=== PATIENT | female | born 1945 | race Caucasian/White ===

== ENCOUNTER 2020-11-04 15:42 | Observation (INO) ==
[2020-11-04] MEDS ORDERED: Naloxone 0.4 MG/ML INJ IVP PRN (22:30)
[2020-11-04] MEDS ORDERED: Ondansetron ODT 4 MG TAB.RAPDIS SL PRN (22:30)
[2020-11-04] MEDS ORDERED: 0.9 % Sodium Chloride 1,000 ML IVC ONE (22:45)
[2020-11-04 23:27] LABS: INR 1.1; Prothrombin Time 12.4 Seconds (9.4-12.1)
[2020-11-04] MEDS ORDERED: Acetaminophen 325 MG TABLET PO ONE (23:28)
[2020-11-04 23:29] LABS: Activated Partial Thrombo Time 25.7 Seconds (26.0-36.0)
[2020-11-04 23:34] LABS: Basophils # 0.1 K/mcL (0.0-0.2); Basophils % 0.3 %; Eosinophils % 0.1 %; Hematocrit 25.4 % (35.3-44.9); Hemoglobin 8.1 g/dL (11.5-15.4); Immature Granulocytes % 0.7 % (0-4); Lymphocytes # 3.7 K/mcL (0.6-4.6); Lymphocytes % 16.8 %; Mean Corpuscular HGB Conc 31.9 g/dL (31.6-35.5); Mean Platelet Volume 10.9 fL (9.4-12.4); Monocytes # 1.9 K/mcL (0.0-1.3); Monocytes % 8.8 %; Platelet Count 296 K/mcL (140-400); Red Blood Count 2.79 M/mcL (3.82-4.97); Red Cell Distribution Width 13.6 % (11.5-14.5); Segmented Neutrophils % 73.3 %; White Blood Count 21.8 K/mcL (4.3-11.1)
[2020-11-04 23:35] LABS: Albumin 3.5 g/dL (3.5-5.7); Albumin/Globulin Ratio 1.7 (1.1-2.2); Bilirubin,Total 0.3 mg/dL (0.3-1.0); Calcium 8.8 mg/dL (8.6-10.3); Chol/HDL Ratio 4.5 (0-4.9); Globulin 2.1 g/dL (2.4-3.5); Magnesium 1.9 mg/dL (1.6-2.6); Phosphorous 3.5 mg/dL (2.7-4.5); Potassium 4.4 mEq/L (3.5-5.1); Total Protein 5.6 g/dL (6.4-8.9)
[2020-11-04] MEDS ORDERED: Ipratropium/Albuterol Neb 3 ML IH PRN (23:37)
[2020-11-04] MEDS ORDERED: cefTRIAXone 1,000 MG in Water for inj. (sterile) 10 ML IVP SCH (23:45)
[2020-11-04] MEDS ORDERED: Azithromycin 250 MG TABLET PO SCH (23:45)
[2020-11-05] MEDS ORDERED: levoFLOXacin 750 MG TABLET PO SCH (00:15)
[2020-11-05 02:24] LABS: Bacteria,Urine Few per hpf (None-Few); Bilirubin,Urine Negative (Negative); Blood,Urine Small (Negative); Clarity,Urine Clear (Clear); Color,Urine Light-Yellow (Yellow); Glucose,Urine (UA) Normal (Normal); Ketones,Urine Negative (Negative); Leukocyte Esterase,Urine Small (Negative); Nitrite,Urine Negative (Negative); PH,Urine 5.5 pH Units (5.0-8.0); Protein,Urine Negative (Neg-Trace); RBC,Urine 0-3 per hpf (0-3); Specific Gravity,Urine 1.025 (1.010-1.025); Squamous Epithelial Cell,Urine Moderate per hpf (None-Few); Urobilinogen,Urine Normal (Normal)
[2020-11-05 02:27] LABS: Potassium,Urine 82.3 mEq/L; Sodium, Urine 25.8 mEq/L
[2020-11-05] MEDS: Acetaminophen 325 MG TABLET PO PRN ×2 (05:20→13:26)
[2020-11-05] MEDS: Pantoprazole 40 MG VIAL IVP SCH ×2 (06:40→17:44)
[2020-11-05 10:38] LABS: Hematocrit 24.1 % (35.3-44.9); Hemoglobin 7.6 g/dL (11.5-15.4); Mean Corpuscular HGB Conc 31.5 g/dL (31.6-35.5); Mean Platelet Volume 10.8 fL (9.4-12.4); Platelet Count 246 K/mcL (140-400); Red Blood Count 2.62 M/mcL (3.82-4.97); Red Cell Distribution Width 13.5 % (11.5-14.5); White Blood Count 15.4 K/mcL (4.3-11.1)
[2020-11-05 11:10] LABS: Influenza A PCR Negative (Negative); Influenza B PCR Negative (Negative); Resp. Syncytial Virus PCR Negative (Negative)
[2020-11-05 11:11] LABS: SARS-CoV-2 by PCR (In House) Negative (Negative)
[2020-11-05] MEDS: Ringers Solution, Lactated 1,000 ML IVC SCH (11:14)
[2020-11-05 12:53] LABS: Calcium 8.7 mg/dL (8.6-10.3); Potassium 4.4 mEq/L (3.5-5.1)
[2020-11-05] MEDS ORDERED: Lidocaine -MPF 2% 5 ML VIAL SQ ONE (13:54)
[2020-11-05] MEDS ORDERED: *HR* Propofol 200 MG/20 ML VIAL IVP ONE (13:54)
[2020-11-05] MEDS: amLODIPine 5 MG TABLET PO SCH (14:43)
[2020-11-05] MEDS ORDERED: SODIUM CHLORIDE/NAHCO3/KCL/PEG 4,000 ML SOLN.RECON PO ONE (17:00)
[2020-11-05 17:29] LABS: Hematocrit 24.8 % (35.3-44.9); Hemoglobin 7.8 g/dL (11.5-15.4)
[2020-11-05] MEDS: carvediloL 25 MG TABLET PO SCH (17:39)
[2020-11-06] MEDS: Ringers Solution, Lactated 1,000 ML IVC SCH ×5 (00:33→20:09)
[2020-11-06] MEDS: Acetaminophen 325 MG TABLET PO PRN ×3 (00:37→20:06)
[2020-11-06] MEDS: Pantoprazole 40 MG VIAL IVP SCH ×2 (06:30→16:57)
[2020-11-06 06:38] LABS: Calcium 8.6 mg/dL (8.6-10.3); Potassium 4.2 mEq/L (3.5-5.1)
[2020-11-06] MEDS: FLUoxetine 20 MG CAPSULE PO SCH (08:51)
[2020-11-06] MEDS: carvediloL 25 MG TABLET PO SCH ×2 (08:51→16:57)
[2020-11-06] MEDS: amLODIPine 5 MG TABLET PO SCH (08:52)
[2020-11-06 15:50] LABS: Hematocrit 25.4 % (35.3-44.9); Hemoglobin 7.8 g/dL (11.5-15.4); Mean Corpuscular HGB Conc 30.7 g/dL (31.6-35.5); Mean Corpuscular Hemoglobin 28.8 pg (28.0-33.3); Mean Corpuscular Volume 93.7 fL (83.0-100.0); Mean Platelet Volume 10.8 fL (9.4-12.4); Platelet Count 286 K/mcL (140-400); Red Blood Count 2.71 M/mcL (3.82-4.97); Red Cell Distribution Width 13.4 % (11.5-14.5); White Blood Count 17.5 K/mcL (4.3-11.1)
[2020-11-06] MEDS ORDERED: SODIUM CHLORIDE/NAHCO3/KCL/PEG 4,000 ML SOLN.RECON PO ONE (17:00)
[2020-11-06] MEDS ORDERED: levoFLOXacin 750 MG TABLET PO SCH (21:00)
[2020-11-07 02:34] LABS: Basophils % 0.2 %; Eosinophils # 0.1 K/mcL (0.0-0.6); Hematocrit 20.7 % (35.3-44.9); Hemoglobin 6.4 g/dL (11.5-15.4); Immature Granulocytes % 0.6 % (0-4); Lymphocytes # 2.3 K/mcL (0.6-4.6); Lymphocytes % 20.7 %; Mean Corpuscular HGB Conc 30.9 g/dL (31.6-35.5); Mean Corpuscular Hemoglobin 29.4 pg (28.0-33.3); Mean Platelet Volume 11.2 fL (9.4-12.4); Monocytes # 1.2 K/mcL (0.0-1.3); Monocytes % 11.2 %; Neutrophils # 7.4 K/mcL (1.6-8.9); Platelet Count 210 K/mcL (140-400); Red Blood Count 2.18 M/mcL (3.82-4.97); Red Cell Distribution Width 13.3 % (11.5-14.5); Segmented Neutrophils % 66.3 %; White Blood Count 11.1 K/mcL (4.3-11.1)
[2020-11-07 02:56] LABS: BUN/Creatinine Ratio 18 (6-26); Blood Urea Nitrogen 19 mg/dL (8-23); Calcium 8.1 mg/dL (8.6-10.3); Carbon Dioxide 21 mEq/L (23-29); Chloride 108 mEq/L (98-107); Glucose 133 mg/dL (70-105); Osmolality,Calculated 292 (280-300); Potassium 3.4 mEq/L (3.5-5.1); Sodium 139 mEq/L (136-145); eGFR For African Americans > 60 (> 60); eGFR For Non-African Americans 50 (> 60)
[2020-11-07] MEDS: Ringers Solution, Lactated 1,000 ML IVC SCH (04:07)
[2020-11-07] MEDS: Pantoprazole 40 MG VIAL IVP SCH ×2 (05:27→17:26)
[2020-11-07] MEDS: FLUoxetine 20 MG CAPSULE PO SCH (08:15)
[2020-11-07] MEDS: amLODIPine 5 MG TABLET PO SCH (08:15)
[2020-11-07] MEDS: Acetaminophen 325 MG TABLET PO PRN ×2 (08:16→22:08)
[2020-11-07] MEDS: carvediloL 25 MG TABLET PO SCH ×2 (08:16→17:26)
[2020-11-07] MEDS ORDERED: 0.9 % Sodium Chloride 250 ML IVC SCH (13:45)
[2020-11-07] MEDS ORDERED: *HR* Propofol 200 MG/20 ML VIAL IVP ONE (13:54)
[2020-11-07] MEDS ORDERED: Lidocaine -MPF 4% 5 ML AMPUL TP ONE (13:54)
[2020-11-07 15:10] LABS: Total Volume 24 Hour,Urine 0.6 Liters (0.60-1.60)
[2020-11-07 15:32] LABS: Sodium, Urine 38.7 mEq/L
[2020-11-07] MEDS: Potassium Chloride Elixir 20 MEQ/15 ML UDC PO ONE (17:25)
[2020-11-07] MEDS: Insulin LISPRO 300 UNITS/3 ML VIAL SUBQ SCH (17:26)
[2020-11-07 19:39] LABS: Hematocrit 26.9 % (35.3-44.9)
[2020-11-07 19:44] LABS: Hemoglobin 8.4 g/dL (11.5-15.4)
[2020-11-07] MEDS ORDERED: Insulin LISPRO 300 UNITS/3 ML VIAL SUBQ SCH (21:00)
[2020-11-08 03:08] LABS: Alanine Aminotransferase 10 Units/L (7-52); Albumin/Globulin Ratio 1.5 (1.1-2.2); Alkaline Phosphatase 60 Units/L (34-104); Aspartate Amino Transferase 16 Units/L (13-39); BUN/Creatinine Ratio 12 (6-26); Bilirubin,Total 0.4 mg/dL (0.3-1.0); Blood Urea Nitrogen 13 mg/dL (8-23); Calcium 8.1 mg/dL (8.6-10.3); Carbon Dioxide 23 mEq/L (23-29); Chloride 110 mEq/L (98-107); Glucose 131 mg/dL (70-105); Osmolality,Calculated 294 (280-300); Potassium 3.4 mEq/L (3.5-5.1); Sodium 141 mEq/L (136-145); eGFR For African Americans > 60 (> 60); eGFR For Non-African Americans 51 (> 60)
[2020-11-08] MEDS: Pantoprazole 40 MG VIAL IVP SCH (05:41)
[2020-11-08] MEDS ORDERED: Potassium Chloride Elixir 20 MEQ/15 ML UDC PO ONE (08:48)
[2020-11-08] MEDS: Insulin LISPRO 300 UNITS/3 ML VIAL SUBQ SCH ×2 (08:53→11:15)
[2020-11-08] MEDS: amLODIPine 5 MG TABLET PO SCH (08:53)
[2020-11-08] MEDS: FLUoxetine 20 MG CAPSULE PO SCH (08:54)
[2020-11-08] MEDS: carvediloL 25 MG TABLET PO SCH (08:54)
[2020-11-08 09:38] LABS: Basophils % 0.2 %; Eosinophils # 0.1 K/mcL (0.0-0.6); Hematocrit 26.7 % (35.3-44.9); Hemoglobin 8.7 g/dL (11.5-15.4); Immature Granulocytes % 0.5 % (0-4); Lymphocytes % 15.7 %; Mean Corpuscular HGB Conc 32.6 g/dL (31.6-35.5); Mean Corpuscular Hemoglobin 29.1 pg (28.0-33.3); Mean Corpuscular Volume 89.3 fL (83.0-100.0); Mean Platelet Volume 10.8 fL (9.4-12.4); Monocytes # 1.4 K/mcL (0.0-1.3); Monocytes % 10.6 %; Neutrophils # 9.2 K/mcL (1.6-8.9); Platelet Count 262 K/mcL (140-400); Red Blood Count 2.99 M/mcL (3.82-4.97); Red Cell Distribution Width 14.8 % (11.5-14.5); White Blood Count 12.7 K/mcL (4.3-11.1)
[2020-11-08] MEDS: Potassium Chloride Elixir 20 MEQ/15 ML UDC PO ONE (11:01)
[2020-11-08 11:15] VITALS: BP 142/66
== END 2020-11-08 13:55 | disposition home or self-care (01) ==
LOC: 3ANU → SUATTDRO 20:20
PROVIDERS: ADMIT Family Medicine; ATTEND Internal Medicine